=== PATIENT | female | born 1995 | race African-American/Black ===

== ENCOUNTER 2018-04-02 04:25 | Emergency (ER) | payer OTHER ==
[2018-04-02] MEDS ORDERED: ACETAMINOPHEN SUSP 160 MG/5 ML ORAL SYRING PO ONE (07:53)
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
[2018-04-02 08:27] VITALS: BP 137/73
== END 2018-04-02 08:27 | disposition home or self-care (01) ==
LOC: ER 04:25
DX: T58.91XA Toxic effect of carbon monoxide from unspecified source, accidental (unintentional), initial encounter (principal); R51 Headache; R53.1 Weakness; X58.XXXA Exposure to other specified factors, initial encounter
CPT/HCPCS: 36415; 82375; 84703; 99284